=== PATIENT | female | born 1940 | race Caucasian/White ===

== ENCOUNTER 2019-02-10 18:15 | Emergency (ER) | payer MEDICARE, OTHER ==
[~2019-02-10] VITALS: Ht 165.1 cm; Wt 79.4 kg
[2019-02-10 19:26] LABS: Chloride 99 mmol/L (98-107); Potassium 3.9 mmol/L (3.5-5.1); Sodium 132 mmol/L (136-145)
[2019-02-10 19:28] LABS: Basophils # (auto) 0 uL; Basophils % (auto) 0.3 % (0.0-2.0); Eosinophils # (auto) 0.1 uL; Eosinophils % (auto) 2.1 % (0.0-7.0); Hematocrit 40.2 % (36.0-46.0); Lymphocytes # (auto) 0.6 uL; Lymphocytes % (auto) 11.5 % (10.0-50.0); Mean Corpuscular Hemoglobin 32.4 pg (28.0-32.0); Mean Corpuscular Hgb Conc. 34.7 g/dL (32.0-36.0); Mean Corpuscular Volume 93.4 fL (80.0-100.0); Monocytes # (auto) 0.5 uL; Monocytes % (auto) 9.3 % (0.0-12.0); Neutrophils # (auto) 4.3 uL; Neutrophils % (auto) 76.8 % (37.0-80.0); Platelet Count (auto) 234 10^3/uL (140-450); Red Blood Cells 4.31 10^6/uL (4.0-5.20); Red Cell Distribution Width 13.1 % (11.8-14.3); White Blood Cell 5.6 10^3/uL (4.4-10.8)
[2019-02-10 19:30] LABS: Albumin 3.7 g/dL (3.4-5.0); Anion Gap 7 (5-15); Blood Urea Nitrogen 13 mg/dL (7-18); Calcium 8.3 mg/dL (8.5-10.1); Carbon Dioxide 26 mmol/L (21-32); Glucose 90 mg/dL (74-106)
[2019-02-10 19:33] LABS: Alanine Aminotransferase 23 U/L (13-56); Aspartate Aminotransferase 20 U/L (15-37); BUN/Creatinine Ratio 15.3; GFR African American 83 mL/min; GFR Non-African American 68 mL/min
[2019-02-10 19:36] LABS: Alkaline Phosphatase 69 U/L (45-117); Bilirubin, Total 0.5 mg/dL (0.2-1.0); Total Protein 7.4 g/dL (6.4-8.2)
[2019-02-10] MEDS ORDERED: ALBUTEROL SULF 2.5 MG/0.5ML(0.5%) NEB SOLN NEB ONE (21:15)
[2019-02-10] MEDS ORDERED: IPRATROPIUM BROM 0.5 MG/2.5ML INH SOL NEB ONE (21:15)
[2019-02-10] MEDS ORDERED: FUROSEMIDE 20 MG/2 ML VIAL IV ONE (21:15)
[2019-02-10] MEDS ORDERED: methylPREDNISolone SOD SUCC 125 MG/2 ML VL IV ONE (21:15)
[2019-02-10 22:00] VITALS: BP 165/81
== END 2019-02-10 23:27 | disposition home or self-care (01) ==
LOC: ER 18:15
DX: J20.9 Acute bronchitis, unspecified (principal); I48.91 Unspecified atrial fibrillation; I50.9 Heart failure, unspecified
CPT/HCPCS: 36415; 71045; 80053; 83735; 83880; 84484; 85025; 93005; 94640; 96374; 96375; 99284; J1940; J2930; J7611; J7644

== ENCOUNTER 2023-09-29 11:03 | Inpatient (IN) | payer MEDICARE, BC ==
[~2023-09-29] VITALS: Ht 165.1 cm; Wt 52.3 kg
[2023-09-29] MEDS ORDERED: SODIUM CHLORIDE 0.9% 1,000 ML IV ONE ×2 (11:15→12:30)
[2023-09-29 11:44] LABS: Basophils # (auto) 0.1 10 ^3/uL (0-0.2); Basophils % (auto) 0.5 % (0.0-2.0); Eosinophils # (auto) 0.3 10 ^3/uL (0-0.8); Eosinophils % (auto) 1.7 % (0.0-7.0); Hematocrit 38.1 % (36.0-46.0); Hemoglobin 12.6 g/dL (12.2-16.2); Lymphocytes # (auto) 1.6 10 ^3/uL (0.4-5.4); Lymphocytes % (auto) 9.2 % (10.0-50.0); Mean Corpuscular Hemoglobin 31.2 pg (28.0-32.0); Mean Corpuscular Volume 94.5 fL (80.0-100.0); Monocytes # (auto) 1.1 10 ^3/uL (0-1.3); Neutrophils # (auto) 14.8 10 ^3/uL (1.6-8.6); Neutrophils % (auto) 82.6 % (37.0-80.0); Red Blood Cells 4.03 10^6/uL (4.0-5.20); White Blood Cell 17.9 10^3/uL (4.4-10.8)
[2023-09-29 11:45] VITALS: PULSE 94; RESP 29; O2SAT 99
[2023-09-29] MEDS ORDERED: DIGOXIN (250MCG/ML) 2 ML AMPULE IV ONE (12:00)
[2023-09-29 12:02] LABS: Alanine Aminotransferase 19 U/L (7-40); Albumin 3.4 g/dL (3.2-4.8); Alkaline Phosphatase 82 U/L (46-116); Anion Gap 4 (5-15); Aspartate Aminotransferase 15 U/L (13-40); BUN/Creatinine Ratio 23.4 (10.0-20.0); Blood Urea Nitrogen 11 mg/dL (9-23); Calcium 7.6 mg/dL (8.7-10.4); Carbon Dioxide 30 mmol/L (20-30); Chloride 100 mmol/L (98-107); Glucose 126 mg/dL (74-106); Magnesium 1.7 mg/dL (1.6-2.6); Potassium 4.7 mmol/L (3.5-5.1); Sodium 134 mmol/L (136-145)
[2023-09-29 12:03] LABS: Bilirubin, Total 0.2 mg/dL (0.2-1.0); Total Protein 5.9 g/dL (5.7-8.2)
[2023-09-29 12:08] LABS: Lactic Acid w/Reflex 2.3 mmol/L (0.4-2.0)
[2023-09-29] MEDS ORDERED: PIPERACILLIN-TAZOB 3.375GM 100 ML IV ONE (12:30)
[2023-09-29 13:17] LABS: Urine Bacteria FEW /hpf (None Seen); Urine Blood Negative /uL (Negative); Urine Clarity Clear (Clear); Urine Color Yellow (Yellow); Urine Hyaline Cast FEW /lpf (0 - 2); Urine Protein, UAD Negative (Negative); Urine Specific Gravity 1.018 (1.001-1.035); Urine Urobilinogen Normal (Negative); Urine WBC 5 /hpf (0 - 5)
[2023-09-29] MEDS ORDERED: ACETAMINOPHEN 325 MG TAB PO PRN (13:30)
[2023-09-29] MEDS ORDERED: ONDANSETRON HCL 4 MG/2 ML VIAL IV PRN (13:30)
[2023-09-29] MEDS ORDERED: NITROGLYCERIN 0.4 MG SL TAB SL PRN (13:30)
[2023-09-29] MEDS ORDERED: MONT-8 PO (13:44)
[2023-09-29] MEDS ORDERED: SOTA80TA PO (13:44)
[2023-09-29] MEDS ORDERED: ATOR40TA52 PO (13:44)
[2023-09-29] MEDS ORDERED: DIGO0.12 PO (13:44)
[2023-09-29] MEDS ORDERED: PANT40TA57 PO (13:44)
[2023-09-29] MEDS ORDERED: HYDR1TAB97 PO (13:44)
[2023-09-29] MEDS ORDERED: DEXTROSE (50%) 50ML SYRG IV PRN (13:45)
[2023-09-29] MEDS ORDERED: HYDROCORTISONE SOD SUCC 100 MG/2ML INJ VIAL IV ONE (13:45)
[2023-09-29] MEDS ORDERED: HYDROcodone-ACET 5/325MG TAB PO PRN (13:45)
[2023-09-29] MEDS ORDERED: VANCOMYCIN PER PHARMACY 0 MG IV SCH (13:45)
[2023-09-29] MEDS: SODIUM CHLORIDE 0.9% 1,000 ML IV SCH (13:52)
[2023-09-29] MEDS ORDERED: NOREPINEPHRINE 8 MG/250ML KIT 250 ML IV SCH (14:00)
[2023-09-29] MEDS ORDERED: NOREPINEPHRINE 8 MG/250ML KIT 250 ML IV ONE (14:03)
[2023-09-29 14:16] LABS: INR 0.98 (0.9-1.15); Partial Thromboplastin Time 26.2 SEC (24.5-34.5); Prothrombin Time 10.3 sec (9.3-11.8)
[2023-09-29] MEDS: ACCU-CHEK COMFORT CURVE STRIP VI SCH ×3 (14:18→21:55)
[2023-09-29] MEDS ORDERED: CEFEPIME 1GM/ 50ML 50 ML IV ONE ×2 (14:21→21:37)
[2023-09-29] MEDS: CEFEPIME 1GM/ 50ML 50 ML IV SCH ×2 (14:28→21:57)
[2023-09-29] MEDS ORDERED: VANCOMYCIN 1GM/250ML 250 ML IV ONE ×3 (14:30→20:31)
[2023-09-29 14:47] LABS: COVID19 ANTIGEN SOFIA FIA NEGATIVE (NEGATIVE)
[2023-09-29 14:48] LABS: Rapid Influenza A Negative (Negative); Rapid Influenza B Negative (Negative)
[2023-09-29 15:00] VITALS: BP 96/53; PULSE 149; RESP 32; TEMP 97.5; O2SAT 95
[2023-09-29] MEDS ORDERED: ADENOSINE 6 MG/2 ML INJ IV ONE ×4 (15:15→15:30)
[2023-09-29] MEDS ORDERED: AMIODARONE 450mg/250ml AE 250 ML IV SCH (16:00)
[2023-09-29] MEDS ORDERED: AMIODARONE 450mg/250ml AE 250 ML IV ONE (16:43)
[2023-09-29 17:00] VITALS: PULSE 94; RESP 37; O2SAT 99
[2023-09-29] MEDS ORDERED: LIDOCAINE 1% (LOCAL ANESTH.) PF 5ml SDV ID ONE (18:00)
[2023-09-29 19:45] VITALS: PULSE 90; RESP 45; O2SAT 95
[2023-09-29] MEDS: VANCOMYCIN 1GM/250ML 250 ML IV SCH (20:00)
[2023-09-29] MEDS ORDERED: HYDROCORTISONE SOD SUCC 100 MG/2ML INJ VIAL ONE (21:31)
[2023-09-29] MEDS ORDERED: SOTALOL HCL 80 MG TAB ONE (21:34)
[2023-09-29] MEDS: SOTALOL HCL 80 MG TAB PO SCH (21:44)
[2023-09-29] MEDS: HYDROCORTISONE SOD SUCC 100 MG/2ML INJ VIAL IV SCH (21:44)
[2023-09-29] MEDS: SODIUM CHLOR 0.9% PF (SALINE LOCK) 10ML VIAL/SYR IV SCH (21:44)
[2023-09-29] MEDS: AMIODARONE 450mg/250ml AE 250 ML IV SCH (22:01)
[2023-09-30] MEDS ORDERED: LORazepam 2MG/ML-1ML VIAL ONE ×2 (00:36→09:32)
[2023-09-30] MEDS ORDERED: AMIODARONE 450mg/250ml AE 250 ML IV ONE (00:42)
[2023-09-30] MEDS ORDERED: LORazepam 2MG/ML-1ML VIAL IV ONE ×2 (00:45→09:30)
[2023-09-30] MEDS: ACCU-CHEK COMFORT CURVE STRIP VI SCH ×6 (01:54→22:03)
[2023-09-30 02:04] VITALS: PULSE 81; RESP 18; O2SAT 89
[2023-09-30] MEDS: LEVALBUTEROL HCL 1.25 MG/3 ML NEB NEB PRN ×2 (02:04→06:05)
[2023-09-30] MEDS: IPRATROPIUM BROM 0.5 MG/2.5ML INH SOL NEB PRN ×2 (02:04→06:05)
[2023-09-30] MEDS: SODIUM CHLORIDE 0.9% 1,000 ML IV SCH ×2 (02:34→16:36)
[2023-09-30] MEDS: AMIODARONE 450mg/250ml AE 250 ML IV SCH ×2 (02:37→17:49)
[2023-09-30 05:32] LABS: Basophils # (auto) 0 10 ^3/uL (0-0.2); Basophils % (auto) 0.2 % (0.0-2.0); Eosinophils # (auto) 0 10 ^3/uL (0-0.8); Hematocrit 31.4 % (36.0-46.0); Hemoglobin 10.4 g/dL (12.2-16.2); Lymphocytes # (auto) 0.7 10 ^3/uL (0.4-5.4); Lymphocytes % (auto) 3.1 % (10.0-50.0); Mean Corpuscular Hemoglobin 30.9 pg (28.0-32.0); Mean Corpuscular Volume 93.9 fL (80.0-100.0); Monocytes # (auto) 0.8 10 ^3/uL (0-1.3); Monocytes % (auto) 3.7 % (0.0-12.0); Neutrophils # (auto) 20.5 10 ^3/uL (1.6-8.6); Red Blood Cells 3.35 10^6/uL (4.0-5.20); Red Cell Distribution Width 13.1 % (11.8-14.3); White Blood Cell 22.1 10^3/uL (4.4-10.8)
[2023-09-30 05:40] LABS: Alanine Aminotransferase 10 U/L (7-40); Albumin 3.1 g/dL (3.2-4.8); Alkaline Phosphatase 57 U/L (46-116); Anion Gap 4 (5-15); Aspartate Aminotransferase 14 U/L (13-40); Calcium 6.5 mg/dL (8.7-10.4); Carbon Dioxide 27 mmol/L (20-30); Chloride 97 mmol/L (98-107); Glucose 196 mg/dL (74-106)
[2023-09-30 05:41] LABS: Bilirubin, Total 0.5 mg/dL (0.2-1.0); Total Protein 5.4 g/dL (5.7-8.2)
[2023-09-30 05:43] LABS: BUN/Creatinine Ratio 20.8 (10.0-20.0); Blood Urea Nitrogen < 5 mg/dL (9-23); Sodium 128 mmol/L (136-145)
[2023-09-30 06:05] VITALS: PULSE 70; RESP 28; O2SAT 95
[2023-09-30 06:15] VITALS: PULSE 75; RESP 28; O2SAT 91
[2023-09-30] MEDS: CEFEPIME 1GM/ 50ML 50 ML IV SCH ×3 (06:41→22:51)
[2023-09-30 07:09] LABS: Base Excess 3.7 mmol/L (-2.0-2.0)
[2023-09-30 08:00] VITALS: PULSE 76; RESP 14; O2SAT 91
[2023-09-30] MEDS ORDERED: hydrALAZINE HCL 20 MG/ML VL IV PRN (08:30)
[2023-09-30] MEDS ORDERED: POTASSIUM CHL 20MEQ/100ML 0 ML IV ONE (09:30)
[2023-09-30] MEDS: VANCOMYCIN 1GM/250ML 250 ML IV SCH ×2 (09:35→20:37)
[2023-09-30] MEDS: POTASSIUM CHL 20MEQ/100ML 100 ML IV SCH ×2 (09:36→12:00)
[2023-09-30] MEDS: PANTOPRAZOLE 40 MG/10 ML VIAL INJ IV SCH (09:36)
[2023-09-30] MEDS: HYDROCORTISONE SOD SUCC 100 MG/2ML INJ VIAL IV SCH (09:37)
[2023-09-30] MEDS ORDERED: ATORVASTATIN 20 MG TAB PO SCH (10:00)
[2023-09-30] MEDS ORDERED: MONTELUKAST SODIUM 10 MG TAB PO SCH (10:00)
[2023-09-30] MEDS: SOTALOL HCL 80 MG TAB PO SCH (10:00)
[2023-09-30] MEDS ORDERED: ENOXAPARIN SOD 40 MG/0.4 ML SYRINGE SC SCH (10:00)
[2023-09-30] MEDS ORDERED: DIGOXIN 0.125 MG TAB PO SCH (10:00)
[2023-09-30] MEDS: SODIUM CHLOR 0.9% PF (SALINE LOCK) 10ML VIAL/SYR IV SCH ×2 (10:29→22:03)
[2023-09-30] MEDS: CALCIUM GLUC 1,000mg/50ml-NS 50 ML IV SCH ×2 (10:30→11:30)
[2023-09-30] MEDS: MORPHINE SULFATE INJ 2 MG/ml SYRG IV PRN ×6 (10:36→22:52)
[2023-09-30 11:02] LABS: Magnesium 1.3 mg/dL (1.6-2.6)
[2023-09-30] MEDS ORDERED: MORPHINE SULFATE INJ 2 MG/ml SYRG ONE ×6 (11:58→22:49)
[2023-09-30] MEDS ORDERED: methylPREDNISolone SOD SUCC 40 MG/ML VL ONE ×2 (15:45→23:04)
[2023-09-30] MEDS: methylPREDNISolone SOD SUCC 40 MG/ML VL IV SCH ×2 (16:24→23:04)
[2023-09-30] MEDS ORDERED: IPRATROPIUM BROM 0.5 MG/2.5ML INH SOL ONE (16:39)
[2023-09-30] MEDS ORDERED: ALBUTEROL SULF 2.5 MG/0.5ML(0.5%) NEB SOLN ONE (16:39)
[2023-09-30] MEDS ORDERED: LORazepam MDV 2MG/ML 10 ML IV ONE (17:58)
[2023-09-30] MEDS: LORazepam 2MG/ML-1ML VIAL IV PRN ×3 (18:01→23:49)
[2023-09-30 19:00] VITALS: O2SAT 95
[2023-09-30 19:30] VITALS: PULSE 64; RESP 19; TEMP 97.3; O2SAT 89
[2023-09-30] MEDS ORDERED: ENOXAPARIN SOD 100 MG/1 ML SYRINGE SC SCH (22:00)
[2023-10-01] VITALS (17 sets, daily range): BP systolic 84–136; BP diastolic 13–20; PULSE 39–46; RESP 7–23; O2SAT 91–94
[2023-10-01] MEDS: MORPHINE SULFATE INJ 2 MG/ml SYRG IV PRN ×7 (01:28→10:55)
[2023-10-01] MEDS: ACCU-CHEK COMFORT CURVE STRIP VI SCH ×4 (02:00→08:51)
[2023-10-01] MEDS: LORazepam 2MG/ML-1ML VIAL IV PRN ×4 (02:10→09:49)
[2023-10-01] MEDS: SODIUM CHLORIDE 0.9% 1,000 ML IV SCH (04:40)
[2023-10-01] MEDS ORDERED: LORazepam 2MG/ML-1ML VIAL ONE ×3 (05:02→08:20)
[2023-10-01 05:50] LABS: Hematocrit 36.1 % (36.0-46.0); Hemoglobin 11.7 g/dL (12.2-16.2); Mean Corpuscular Hemoglobin 31.3 pg (28.0-32.0); Mean Corpuscular Hgb Conc. 32.5 g/dL (32.0-36.0); Mean Corpuscular Volume 96.2 fL (80.0-100.0); Red Blood Cells 3.75 10^6/uL (4.0-5.20); Red Cell Distribution Width 13.1 % (11.8-14.3); White Blood Cell 28.7 10^3/uL (4.4-10.8)
[2023-10-01] MEDS ORDERED: methylPREDNISolone SOD SUCC 40 MG/ML VL ONE (06:06)
[2023-10-01] MEDS: methylPREDNISolone SOD SUCC 40 MG/ML VL IV SCH (06:07)
[2023-10-01 06:09] LABS: Alanine Aminotransferase 14 U/L (7-40); Albumin 3.6 g/dL (3.2-4.8); Alkaline Phosphatase 79 U/L (46-116); Anion Gap 2 (5-15); Aspartate Aminotransferase 25 U/L (13-40); BUN/Creatinine Ratio 11.3 (10.0-20.0); Bilirubin, Total 0.2 mg/dL (0.2-1.0); Blood Urea Nitrogen 12 mg/dL (9-23); Calcium 8.4 mg/dL (8.5-10.1); Carbon Dioxide 32 mmol/L (20-30); Chloride 93 mmol/L (98-107); Glucose 155 mg/dL (74-106); Sodium 127 mmol/L (136-145); Total Protein 6.3 g/dL (5.7-8.2)
[2023-10-01 06:19] LABS: Basophils % (manual) 0 (0.0-2.0); Blast Cells 0; Eosinophils % (manual) 0 (0-7); Metamyelocytes % 0; Myelocytes % 0; Promyelocytes % 0; Reactive Lymphocytes 0
[2023-10-01 06:25] LABS: Potassium 5.3 mmol/L (3.5-5.1)
[2023-10-01 06:30] LABS: Magnesium 2.2 mg/dL (1.6-2.6)
[2023-10-01] MEDS ORDERED: ALB5IS NEB (06:39)
[2023-10-01] MEDS ORDERED: CETI10CA PO (06:41)
[2023-10-01] MEDS ORDERED: FAMO20TA10 PO (06:44)
[2023-10-01] MEDS ORDERED: CLINIMIX PER PHARMACY 0 ML IV SCH (07:00)
[2023-10-01] MEDS ORDERED: MORPHINE SULFATE INJ 2 MG/ml SYRG ONE ×2 (07:29→08:20)
[2023-10-01] MEDS: CEFEPIME 1GM/ 50ML 50 ML IV SCH (07:55)
[2023-10-01] MEDS: VANCOMYCIN 1GM/250ML 250 ML IV SCH (07:55)
[2023-10-01] MEDS: PANTOPRAZOLE 40 MG/10 ML VIAL INJ IV SCH (07:56)
[2023-10-01] MEDS: SODIUM CHLOR 0.9% PF (SALINE LOCK) 10ML VIAL/SYR IV SCH (07:56)
[2023-10-01] MEDS: AMIODARONE 450mg/250ml AE 250 ML IV SCH (07:58)
[2023-10-01 08:06] LABS: Band Neutrophils % (manual) 13; Lymphocytes % (manual) 2 (10.0-50.0); Monocytes % (manual) 4 (0-12); Platelet Estimate Adequate
[2023-10-01] MEDS ORDERED: ENOXAPARIN SOD 40 MG/0.4 ML SYRINGE SC SCH (10:00)
== END 2023-10-01 15:21 | DRG 871 ==
LOC: EDBD 11:03 → EDUNIT# 11:03 → ER 11:03 → TELE 13:29 → DOU IN ICU 10-01 01:20
PROVIDERS: ADMIT Internal Medicine; ATTEND Internal Medicine
PROC: 02HV33Z Insertion of Infusion Device into Superior Vena Cava, Percutaneous Approach (ICD-10-PCS; principal; 2023-09-29)
PROC: B548ZZA Ultrasonography of Superior Vena Cava, Guidance (ICD-10-PCS; 2023-09-29)
DX: A41.9 Sepsis, unspecified organism (principal); J15.69 Pneumonia due to other Gram-negative bacteria; J96.21 Acute and chronic respiratory failure with hypoxia; J15.9 Unspecified bacterial pneumonia; R65.21 Severe sepsis with septic shock; E87.21 Acute metabolic acidosis; N39.0 Urinary tract infection, site not specified; I47.10 Supraventricular tachycardia, unspecified; I50.32 Chronic diastolic (congestive) heart failure; J44.0 Chronic obstructive pulmonary disease with (acute) lower respiratory infection; Z20.822 Contact with and (suspected) exposure to COVID-19; Z66 Do not resuscitate; I27.20 Pulmonary hypertension, unspecified; K21.9 Gastro-esophageal reflux disease without esophagitis; J84.10 Pulmonary fibrosis, unspecified; I48.91 Unspecified atrial fibrillation; E78.5 Hyperlipidemia, unspecified; F03.90 Unspecified dementia, unspecified severity, without behavioral disturbance, psychotic disturbance, mood disturbance, and anxiety; I11.0 Hypertensive heart disease with heart failure; Z51.5 Encounter for palliative care; Z85.828 Personal history of other malignant neoplasm of skin; Z87.891 Personal history of nicotine dependence
CPT/HCPCS: 36415; 36569; 36600; 71045; 71275; 80053; 80061; 80162; 81001; 82306; 82607; 82805; 82962; 83036; 83605; 83735; 83880; 84100; 84443; 84484; 85007; 85025; 85027; 85379; 85610; 85730; 86141; 87040; 87081; 87086; 87426; 87804; 93005; 93306; 94640; 99291; C9113; G0378; J0153; J2543; J3480